=== PATIENT | female | born 1985 | race African-American/Black ===

== ENCOUNTER 2018-09-14 15:19 | Emergency (ER) | payer OTHER ==
[~2018-09-14] VITALS: Ht 162.6 cm; Wt 113.4 kg
--- NOTE | 2018-09-14 16:11 | NUR ---
PATIENT WAS SEEN BY MD. XRAYS DONE.
--- NOTE | 2018-09-14 16:51 | NUR ---
SPLINT APPLID BY Florentin CHISHOLM LVN. CRUTCHES WITH DEMO GIVEN AND COMPLETED. DC AND F/U INSTRUCTIONS GIVEN AND EXPLAINED TO PATIENT WHO STATES SHE UNDERSTANDS ALL INSTRUCTIONS.
== END 2018-09-14 17:02 | disposition home or self-care (01) ==
LOC: ER 15:19
DX: M25.572 Pain in left ankle and joints of left foot (principal); X50.1XXA Overexertion from prolonged static or awkward postures, initial encounter; Y93.89 Activity, other specified; Y92.89 Other specified places as the place of occurrence of the external cause; Y99.8 Other external cause status
CPT/HCPCS: 73610; A4663